=== PATIENT | male | born 1995 | race African-American/Black ===

== ENCOUNTER 2017-12-13 23:44 | Emergency (ER) | payer MEDICAID ==
[~2017-12-13] VITALS: Ht 167.6 cm; Wt 70.0 kg
[~2017-12-13 23:44] MED LIST: ALBUTEROL
[2017-12-14] MEDS ORDERED: KETOROLAC 60MG/2ML VIAL IM STA (00:42)
[2017-12-14] MEDS ORDERED: IBUPROFEN 600MG TABLET PO STA (01:18)
[2017-12-14 05:36] VITALS: BP 126/80
== END 2017-12-14 05:35 | disposition home or self-care (01) ==
LOC: ER 23:48
DX: M25.572 Pain in left ankle and joints of left foot (principal); J45.909 Unspecified asthma, uncomplicated; Z87.828 Personal history of other (healed) physical injury and trauma; Z79.899 Other long term (current) drug therapy
CPT/HCPCS: 73610; 73630; 93971; 99284; J1885

== ENCOUNTER 2019-12-30 14:09 | Emergency (ER) | payer MEDICAID ==
[~2019-12-30] VITALS: Ht 175.3 cm; Wt 66.0 kg
[2019-12-30] MEDS ORDERED: ONDANSETRON HCL 4MG/2ML INJ IV STA ×2 (14:10→15:11)
[2019-12-30] MEDS ORDERED: MORPHINE SULFATE 4 MG/ML CPJ (NOT FOR IM USE) IV STA ×2 (14:10→15:11)
[2019-12-30] MEDS ORDERED: SODIUM CHLORIDE 0.9% 1,000 ML IV ONE (14:10)
[2019-12-30] MEDS ORDERED: CEFAZOLIN 1000MG PREMIX 50 ML IV ONE (14:15)
[2019-12-30] MEDS ORDERED: TETANUS, DIPHTHERIA, PERTUSSIS VAC/PF 0.5ML (>7YR OLD) IM ONE (14:15)
[2019-12-30 14:50] LABS: CHLORIDE 107 mEq/L (98-107)
[2019-12-30 14:53] LABS: INR 1.1; PROTHROMBIN TIME 11.5 sec (9.6-11.0)
[2019-12-30 14:54] LABS: ETHANOL BLOOD < 10 mg/dL
[2019-12-30 14:55] LABS: BASOPHILS % 0.5 % (0.0-2.0); EOSINOPHILS % 1.6 % (0.0-5.0); HEMATOCRIT. 48.2 % (42.0-52.0); HEMOGLOBIN. 16.3 g/dL (14.0-18.0); LYMPHOCYTES % 39.6 % (20.0-50.0); MEAN CORPUSCULAR HEMOGLOBIN 26.8 pg (28.0-32.0); MEAN CORPUSCULAR VOLUME 78.9 fL (80.0-94.0); MEAN PLATELET VOLUME 7.9 fl (7.4-10.4); NEUTROPHILS % 51.3 % (40.0-76.0); PLATELET 269 x1000/uL (130-400); RED BLOOD CELL COUNT 6.11 mill/uL (4.7-6.1); RED CELL DISTRIBUTION WIDTH 14.6 % (11.6-14.6)
[2019-12-30] MEDS ORDERED: MORPHINE SULFATE 4 MG/ML CPJ (NOT FOR IM USE) IV ONE (15:16)
[2019-12-30] MEDS ORDERED: LORAZEPAM 2MG/ML CPJ IV ONE (16:00)
[2019-12-30] MEDS ORDERED: POTASSIUM CHLORIDE 20MEQ TABLET SR PO ONE (17:30)
[2019-12-30 18:15] VITALS: BP 125/84
[2019-12-30] MEDS ORDERED: BACITRACIN ZINC OINT UDPKT TOP ONE (18:15)
[2019-12-30] MEDS ORDERED: IOHEXOL-350 100 ML BOTTLE ONE (22:58)
== END 2019-12-30 20:43 | disposition home or self-care (01) ==
LOC: ER 14:09
DX: S41.031A Puncture wound without foreign body of right shoulder, initial encounter (principal); S46.291A Other injury of muscle, fascia and tendon of other parts of biceps, right arm, initial encounter; J45.909 Unspecified asthma, uncomplicated; W33.01XA Accidental discharge of shotgun, initial encounter; Y93.89 Activity, other specified; Y92.89 Other specified places as the place of occurrence of the external cause; Y99.8 Other external cause status
CPT/HCPCS: 36415; 70498; 71045; 73030; 73070; 80053; 80320; 85025; 85610; 90471; 90715; 96365; 96375; 96376; 99285; J0690; J2060; J2270; J2405; J7030; Q9967; G0480

== ENCOUNTER 2021-12-21 05:45 | Emergency (ER) | payer MEDICAID ==
[~2021-12-21] VITALS: Ht 170.2 cm; Wt 62.9 kg
[2021-12-21] MEDS ORDERED: HYDROCODONE/ACETAMINOPHEN 5/325MG TABLET PO ONE (08:15)
[2021-12-21] MEDS ORDERED: KETOROLAC 15MG/ML VIAL IM ONE (09:30)
[2021-12-21] MEDS ORDERED: NAPR-681 MT (10:10)
[2021-12-21] MEDS ORDERED: ACET-2708 MT (10:10)
[2021-12-21 10:27] VITALS: BP 108/87
== END 2021-12-21 10:29 | disposition home or self-care (01) ==
LOC: ER 05:45
DX: S52.592A Other fractures of lower end of left radius, initial encounter for closed fracture (principal); Y93.67 Activity, basketball; Y92.9 Unspecified place or not applicable; Z98.890 Other specified postprocedural states
CPT/HCPCS: 29125; 73090; 73110; 73130; 96372; 99284; J1885